=== PATIENT | female | born 1985 | race Hispanic/Latino ===

== ENCOUNTER 2017-05-19 10:15 | Emergency (ER) | payer OTHER ==
--- NOTE | 2017-05-19 10:35 | ED PDOC ---
HPI: General Adult Time Seen by Provider: 05/19/17 10:21 Chief Complaint (Nursing): Vascular Access Device Problem Chief Complaint (Provider): PICC line removal History Per: Patient History/Exam Limitations: no limitations Onset/Duration Of Symptoms: Days (x 2) Current Symptoms Are (Timing): Still Present Additional Complaint(s): Judith is a 31 y/o female with a past medical history of Crohn's disease, who was referred to the ED from PMD for replacement of PICC line, which is used for TPN. Patient tried irrigating last night with Activase, and was unable to flush line. No other medical complaints at this time. PMD: Unknown Past Medical History Reviewed: Historical Data, Nursing Documentation, Vital Signs - Medical History PMH: Crohn's Disease (s/p TPN with PICC line) - Family History Family History: States: Unknown Family Hx - Allergies Allergies/Adverse Reactions: Allergies Allergy/AdvReac Type Severity Reaction Status Date / Time mercaptopurine Allergy SWELLING Verified 05/19/17 10:36 Review of Systems ROS Statement: Except As Marked, All Systems Reviewed And Found Negative Constitutional: Positive for: Other (PICC line malfunction) Physical Exam - Reviewed Nursing Documentation Reviewed: Yes Vital Signs Reviewed: Yes - Physical Exam Appears: Positive for: Well, Non-toxic, No Acute Distress Head Exam: Positive for: ATRAUMATIC, NORMAL INSPECTION, NORMOCEPHALIC Skin: Positive for: Normal Color, Warm, Dry Eye Exam: Positive for: EOMI, Normal appearance, PERRL Neck: Positive for: Normal, Painless ROM Cardiovascular/Chest: Positive for: Regular Rate, Rhythm. Negative for: Murmur Respiratory: Positive for: Normal Breath Sounds. Negative for: Accessory Muscle Use, Respiratory Distress Back: Positive for: Normal Inspection. Negative for: Vertebral Tenderness Extremity: Positive for: Normal ROM, Other (Left bicep- no erythema, swelling, or tenderness) Neurologic/Psych: Positive for: Alert, Oriented Medical Decision Making Medical Decision Making: Time: 10:26 Initial Impression: PICC Line Removal Initial Plan: --Pending urine test --Given 1 mg Ativan PO --PICC line to be removed, and to be replaced by IR Scribe Attestation: Documented by Lynda Amezcua, acting as a scribe for Sandro Darby MD Provider Scribe Attestation: All medical record entries made by the Scribe were at my direction and personally dictated by me. I have reviewed the chart and agree that the record accurately reflects my personal performance of the history, physical exam, medical decision making, and the department course for this patient. I have also personally directed, reviewed, and agree with the discharge instructions and disposition. Disposition - Clinical Impression Clinical Impression: S/P PICC central line placement - Patient ED Disposition Is Patient to be Admitted: No Counseled Patient/Family Regarding: Diagnosis, Need For Followup - Disposition Disposition: Routine/Home Disposition Time: 15:58 Condition: FAIR Instructions: Peripherally Inserted Central Catheters and Midline Catheters ( GEN) Forms: [employer] ([place])
[2017-05-19] MEDS ORDERED: Lidocaine 1% Inj (20ml) ONE (15:04)
--- NOTE | 2017-05-19 15:54 | PCM.SURG1 ---
Surgeon's Initial Post Op Note - Surgeon's Notes Surgeon: Edgar Lock Technician: None Type of Anesthesia: Local Pre-Operative Diagnosis: Chrons Dx and need for IV access. Operative Findings: Patent right basilic vein. Post-Operative Diagnosis: Chrons Dx and need for IV access. Operation Performed: Right basilic vein 32cm 5F DL PICC placed with the tip at the RA/SVC junction. Specimen/Specimens Removed: None Estimated Blood Loss: EBL {In ML}: 1 Date of Surgery/Procedure: 05/19/17 Time of Surgery/Procedure: 15:45
[2017-05-19 16:02] VITALS: TEMP 98.6
[2017-05-19 16:36] VITALS: BP 123/77; PULSE 76; RESP 16; O2SAT 99
--- NOTE | 2017-05-21 11:38 | VASCULAR ---
Procedure: Ultrasound and fluoroscopically placed Right upper extremity PICC. Clinical indication: Long-term IV antibiotics. Technique: The relative risks and indications of the procedure were explained to the patient and written informed consent obtained. The patient was placed supine on the angiographic table and the right arm prepped and draped in the usual sterile fashion. A tourniquet was applied to the right axilla. 1% lidocaine was used to anesthetize the skin and soft tissues at the puncture site above the elbow. The right basilic vein was punctured under direct ultrasound guidance with a micropuncture set. A permanent image was stored. A 0.018 guidewire was advanced centrally and used to measure the length to the SVC/RA junction. A 5 [place] double -lumen PICC, size 32 cm, was advanced to the SVC/RA junction under fluoroscopic guidance. The catheter was flushed and secured. The patient tolerated the procedure well. Postprocedure chest image was obtained to ensure location of the catheter tip at the SVC right atrial junction. Impression: Ultrasound and fluoroscopically placed right upper extremity PICC. A 5 [place] double -lumen PICC, size 32 cm was advanced to the SVC/RA junction. PICC ready for use.
== END 2017-05-19 16:36 | disposition home or self-care (01) ==
LOC: H.ER 10:15
DX: Z45.2 Encounter for adjustment and management of vascular access device (principal); K50.90 Crohn's disease, unspecified, without complications